=== PATIENT | female | born 1935 | race Asian ===

== ENCOUNTER 2017-04-07 14:32 | Emergency (ER) | payer MEDICARE, OTHER ==
[~2017-04-07] VITALS: Ht 157.5 cm; Wt 61.4 kg
[~2017-04-07 14:32] MED LIST: ACET-66 PO; ASPI81TA33 PO; BACL10TA PO; DEXL30CA3 PO; DOCU-275 PO; FURO40 PO; GABA-531 PO; METO-416 PO; MIRT15 PO; POTA8TAB4 PO; PRAV20TA4 PO; WARF2.5 PO; WARF3TAB29 PO
[2017-04-07] MEDS ORDERED: PRAV20TA4 PO (14:52)
[2017-04-07] MEDS ORDERED: GABA-531 PO (14:52)
[2017-04-07] MEDS ORDERED: FURO80 PO (14:52)
[2017-04-07] MEDS ORDERED: ALLO100T PO (14:52)
[2017-04-07 15:29] LABS: BASOPHILS % (AUTO) 0.7 % (0.0-2.0); EOSINOPHILS % (AUTO) 2.5 % (1.0-6.0); HEMATOCRIT 36.7 % (36-46); HEMOGLOBIN 11.3 g/dL (12.0-16.0); LYMPHOCYTES # (AUTO) 2.2 K/uL (1.0-4.8); LYMPHOCYTES % (AUTO) 38.7 % (22.0-44.0); MEAN CORPUSCULAR HEMOGLOBIN 24.4 pg (26.0-34.0); MEAN CORPUSCULAR HGB CONC 30.8 G/dL (31.0-37.0); MEAN CORPUSCULAR VOLUME 79 fL (80-100); MONOCYTES # (AUTO) 0.6 K/uL (0.1-1.0); MONOCYTES % (AUTO) 10.4 % (2.0-9.0); NEUTROPHILS # (AUTO) 2.8 K/uL (1.8-7.7); NEUTROPHILS % (AUTO) 47.7 % (40.0-70.0); PLATELET COUNT (AUTO) 155 K/uL (150-450); RED BLOOD CELL COUNT(AUTO) 4.65 MIL/uL (4.00-5.20); RED CELL DISTRIBUTION WIDTH 16.7 % (11.5-14.5); WHITE BLOOD COUNT (AUTO) 5.8 K/uL (4.5-11.0)
[2017-04-07 15:41] LABS: CALCIUM, TOTAL 9.2 mg/dL (8.8-10.5); CREATININE 1.24 mg/dL (0.60-1.30); POTASSIUM 3.7 mmol/L (3.5-5.1)
[2017-04-07 15:47] LABS: BILIRUBIN,TOTAL 0.2 mg/dL (0.1-1.0); TOTAL PROTEIN, SERUM 8.7 g/dL (6.4-8.2)
[2017-04-07 16:05] VITALS: BP 117/68
[2017-04-07 17:28] LABS: RBC MORPHOLOGY COMMENT ABNORMAL RBC MORPH
== END 2017-04-07 16:32 | disposition home or self-care (01) ==
LOC: EMS 14:35
DX: R51 Headache (principal); I48.91 Unspecified atrial fibrillation; J44.9 Chronic obstructive pulmonary disease, unspecified; I10 Essential (primary) hypertension; Z79.01 Long term (current) use of anticoagulants
CPT/HCPCS: 70450; 99285

== ENCOUNTER 2021-04-17 11:29 | Day surgery (SDC) | payer MEDICARE, MEDICAID ==
[2021-04-15 12:00] LABS: COVID AG,FIA SOURCE NASOPHARYNGEAL
[~2021-04-17] VITALS: Ht 157.5 cm; Wt 58.2 kg
[~2021-04-17 11:29] MED LIST changes: -ACET-66 PO; +ALLO100T2 PO; +APIX2.5T PO; -ASPI81TA33 PO; -BACL10TA PO; -DEXL30CA3 PO; -DOCU-275 PO; +FLUT16H NASAL; +FURO20 PO; -FURO40 PO; +GABA-1181 PO; -GABA-531 PO; +MAGN200T5 PO; -MIRT15 PO; +PANT-31 PO; +POTA-92 PO; -POTA8TAB4 PO; +SACU1TAB PO; +SODIUM CHLORIDE 0.9% 1,000 ML ONE; -WARF2.5 PO; -WARF3TAB29 PO
[2021-04-17] MEDS ORDERED: SODIUM CHLORIDE 0.9% 1,000 ML IV ONE (11:30)
[2021-04-17] MEDS ORDERED: PROPOFOL 1% 20 ML VIAL IVP ONE (12:00)
== END 2021-04-17 14:45 | disposition home or self-care (01) ==
LOC: SURGERY 11:29
PROVIDERS: ATTEND Internal Medicine Gastroenterology
DX: K25.9 Gastric ulcer, unspecified as acute or chronic, without hemorrhage or perforation (principal); I10 Essential (primary) hypertension; I25.10 Atherosclerotic heart disease of native coronary artery without angina pectoris; I48.91 Unspecified atrial fibrillation; I49.5 Sick sinus syndrome; E11.9 Type 2 diabetes mellitus without complications; Z79.899 Other long term (current) drug therapy; Z86.73 Personal history of transient ischemic attack (TIA), and cerebral infarction without residual deficits; Z98.890 Other specified postprocedural states
CPT/HCPCS: 43239; 87426; 93005; C9803; J2704; J7030